=== PATIENT | male | born 1940 | race Caucasian/White ===

== ENCOUNTER 2021-10-22 08:21 | Day surgery (SDC) | payer MEDICARE, BC ==
[2021-10-22] MEDS: Tetracaine HCl/PF 0.5% 4 ML Bottle EYEBOTH SCH ×4 (08:26→10:07)
[2021-10-22] MEDS: Brimonidine 0.2% Ophth Soln 5 ML Bottle EYERT SCH ×4 (08:31→10:22)
[2021-10-22] MEDS: Phenylephrine 2.5% Ophth Soln 2 ML Bot EYERT SCH ×6 (08:36→09:55)
[2021-10-22] MEDS: Tropicamide 1% Ophth Soln 15 ML Bottle EYERT SCH ×4 (08:41→09:32)
[2021-10-22] MEDS: Polymyxin B/Trimethoprim 10 ML Bottle EYERT SCH ×3 (09:17→10:22)
[2021-10-22] MEDS: Cefuroxime 10 MG/ML SYRINGE EYERT SCH ×2 (09:24→10:21)
[2021-10-22] MEDS: Lidocaine 1% PF 2 ML SDV INJECT SCH ×2 (09:24→10:08)
[2021-10-22] MEDS: Pilocarpine 4% Ophth Soln 15 ML Bot EYERT SCH ×2 (09:25→10:22)
== END 2021-10-22 10:40 | disposition home or self-care (01) ==
LOC: JD.SDS 08:21
PROVIDERS: ATTEND Ophthalmology
DX: E10.36 Type 1 diabetes mellitus with diabetic cataract (principal); H25.813 Combined forms of age-related cataract, bilateral; E78.00 Pure hypercholesterolemia, unspecified; I10 Essential (primary) hypertension; F17.210 Nicotine dependence, cigarettes, uncomplicated; K21.9 Gastro-esophageal reflux disease without esophagitis; E03.9 Hypothyroidism, unspecified; Z98.890 Other specified postprocedural states; Z79.890 Hormone replacement therapy; Z79.899 Other long term (current) drug therapy
CPT/HCPCS: 66984; C1780; J0697